=== PATIENT | male | born 1955 | race Caucasian/White ===

== ENCOUNTER → 2018-07-23 | Outpatient (CLI) | payer OTHER ==
[~2018-07-23] MED LIST: BUPR150T11 PO; CITA40TA5 PO; CLOP75TA57 PO; GABA600T14 PO; HYDR-2769 PO; LEVO112T2 PO; LISI-338 PO; RANI150T2 PO; SIMV40TA3 PO; TIZA6CAP3 PO
--- NOTE | 2018-07-23 12:25 | KCIC ---
EYE FOR FOREIGN BODY History: Previous history of metal in the eyes, pre-MRI screening Comparison: None. Findings: 2 views of the orbits are submitted. No metallic foreign body is identified in the region of orbits. Impression: 1. No metallic foreign body is identified in the region of orbits. Electronically signed by: Cj Tee MD (07/23/2018 12:21 PM) [id number]
--- NOTE | 2018-07-23 14:26 | KCIC ---
MRI Cervical Spine Without Contrast History: Cervicalgia, chronic neck pain, previous surgeries, severe left arm pain Technique: Multiplanar, multi sequential noncontrast MR imaging was performed of the cervical spine. Comparison: None Findings: There is incorporated interbody graft with osseous interbody fusion at C5-C6. There is also anterior metallic plate C6-7 with incorporated interbody graft and interbody fusion C6-7. Cervical vertebral body stature is maintained. There is a minimal anterior spondylolisthesis C7-T1. There is mild degenerative disc disease C4-5. There is posterior annular tear C3-4. There is no convincing marrow edema. Cervical cord is not expanded. There is more defined nonexpansile T2 and STIR hyperintense signal of the cord at C6-7, also somewhat amorphous STIR hyperintense signal abnormality of the cord at C4-5 at which there is spinal stenosis. There is mild cervical levoscoliosis. C2-C3: There is negligible right paracentral protrusion with associated annular tear. Central canal is adequate about 11 mm. Neural foramina are overall adequate. C3-C4: There is mild buckling of the ligamentum flavum. There is shallow broad posterior protrusion. Central canal is narrowed to about 7 mm also with mild narrowing of the lateral recesses. There is bilateral facet degenerative change, also mild uncovertebral degenerative change. There is moderate narrowing of the right neural foramen, left neural foramen adequate. C4-C5: There is a fairly prominent broad posterior protrusion, also component of extrusion extending slightly below and very minimally above the intervertebral disc space, overall dimension of disc abnormality about 10 mm CC by 16 mm transverse by up to 5 mm AP. There is buckling of the ligamentum flavum. Combination of findings results in effacement of the dorsal and ventral subarachnoid space with impingement of the cord, significant narrowing of the central canal about 4 mm. There is also significant lateral recess stenosis bilaterally. There is severe neural foramina compromise bilaterally. There is mild facet degenerative change bilaterally. C5-C6: Central canal is borderline about 10 mm. There is mild facet degenerative change, also some osteophytes in the right at uncovertebral region. Left neural foramen is adequate, very mild narrowing of the right neural foramen. C6-C7: There are posterior osteophytes somewhat greater in the left lateral recess. Central canal is narrowed to about 8 mm with a somewhat greater degree of left lateral recess stenosis. There are osteophytes in the uncovertebral regions which in combination with facet degenerative change results in moderate to severe neural foramina compromise somewhat greater on the right. C7-T1: Spinal canal is adequate. There is facet degenerative change, contributes to likely at least mild neural foramina compromise from posteriorly bilaterally. Impression: 1. There is severe spinal stenosis C4-5 with contact of the cord, amorphous STIR hyperintense signal of the cord at this level likely due to mild cord edema. There is also severe neural foramina compromise bilaterally at C4-5. 2. There is a lesser degree of mild spinal stenosis C6-7 and C3-4 as described. 3. There is other multilevel facet and uncovertebral degenerative change resulting in multilevel neural foramina compromise as stated greatest bilaterally at C6-7 and on the right at C3-4. 4. There is interbody fusion C5-C6, also anterior cervical fusion hardware at C6-7 at which there is interbody fusion. 5. Nonexpansile signal change of the cord at C6-7 is likely due to myelomalacia. Findings were called to voicemail for certified medical aide for Dr. Stauffer at 07/23/2018 2:20 PM. Electronically signed by: Cj Tee MD (07/23/2018 2:21 PM) [id number]
== END | disposition home or self-care (01) ==
LOC: KCIC MRI 11:24
PROVIDERS: ATTEND Family Medicine
DX: Z01.00 Encounter for examination of eyes and vision without abnormal findings (principal); M50.21 Other cervical disc displacement, high cervical region; M48.02 Spinal stenosis, cervical region; M47.892 Other spondylosis, cervical region; M25.78 Osteophyte, vertebrae; M50.321 Other cervical disc degeneration at C4-C5 level; M43.13 Spondylolisthesis, cervicothoracic region
CPT/HCPCS: 70030; 72141

== ENCOUNTER → 2018-10-04 | Outpatient (CLI) | payer OTHER ==
--- NOTE | 2018-10-04 14:29 | KCIC ---
EXAM: Cervical spine, 3 views. HISTORY: Stenosis. COMPARISON: MRI dated 07/23/2018. FINDINGS: Frontal, lateral and swimmer's views of cervical spine are obtained. There is instrumented posterior spinal fusion and laminectomy decompression at C3-C5. There is interbody fusion with bony bridging at C5-C6 and history of anterior spinal fusion and interbody fusion at C6-C7. There is no significant listhesis. The nonfused disc spaces are preserved. There is facet arthropathy at multiple levels. IMPRESSION: 1. Instrumented posterior fusion and laminectomy decompression at C3-C5, interbody fusion at C5-C6 and anterior instrumented fusion and interbody fusion at C6-C7. 2. Mild multilevel degenerative change. Electronically signed by: Beth Bangura MD (10/04/2018 2:26 PM) [facility]
== END | disposition home or self-care (01) ==
LOC: KCIC 13:49
DX: M47.812 Spondylosis without myelopathy or radiculopathy, cervical region (principal); M48.02 Spinal stenosis, cervical region; M43.22 Fusion of spine, cervical region; M12.88 Other specific arthropathies, not elsewhere classified, other specified site; G99.2 Myelopathy in diseases classified elsewhere
CPT/HCPCS: 72040

== ENCOUNTER → 2018-12-07 | Outpatient (CLI) | payer OTHER ==
--- NOTE | 2018-12-07 16:06 | KCIC ---
4 views of the cervical spine compared to similar study dated October 04, 2018 for cervical stenosis, bilateral arm spasms, cervical fusion, status post chiropractic visit. FINDINGS: There is straightening of the normal cervical lordosis. There is ACDF at C6-7 and there is posterior fusion from C3 through C5. Alignment is maintained. Prevertebral soft tissues are grossly unremarkable. Uncovertebral osteoarthritis is present. IMPRESSION: 1. Straightening of the normal cervical lordosis with multilevel postsurgical changes as described. No acute osseous or alignment abnormality. Electronically signed by: Bear Parks MD (12/07/2018 4:03 PM) [id number]
== END | disposition home or self-care (01) ==
LOC: KCIC 09:37
PROVIDERS: ATTEND Neurological Surgery
DX: M47.812 Spondylosis without myelopathy or radiculopathy, cervical region (principal); M48.02 Spinal stenosis, cervical region; M43.22 Fusion of spine, cervical region
CPT/HCPCS: 72040